=== PATIENT | female | born 1980 | race Caucasian/White ===

== ENCOUNTER → 2016-05-26 | Outpatient (CLI) | payer OTHER ==
[2016-05-26 08:09] LABS: BASO # 0.1 x10^3/uL (0.0-0.2); BASO % 1 % (0-3); EOS % 5 % (0-3); HEMATOCRIT 41.3 % (36.0-47.0); HEMOGLOBIN 13.1 g/dL (12.0-15.5); LYMPH # 2.2 x10^3/uL (1.0-4.8); LYMPH % 30 % (24-48); MEAN CORPUSCULAR HEMOGLOBIN 29 pg (25-35); MEAN CORPUSCULAR HGB CONC 32 g/dL (31-37); MEAN CORPUSCULAR VOLUME 90 fL (79-100); MONO % 9 % (0-9); NEUT % 54 % (31-73); PLATELET COUNT 247 x10^3/uL (140-400); RED BLOOD COUNT 4.57 x10^6/uL (3.50-5.40); RED CELL DISTRIBUTION WIDTH 13.6 % (11.5-14.5); WHITE BLOOD COUNT 7.4 x10^3/uL (4.0-11.0)
[2016-05-26 08:37] LABS: ALBUMIN 3.8 g/dL (3.4-5.0); ALBUMIN/GLOBULIN RATIO 1.1 (1.0-1.7); CALCIUM 9.1 mg/dL (8.5-10.1); CHOLESTEROL/HDL RATIO 1.2; CREATININE 0.7 mg/dL (0.6-1.0); GFR 94.2; POTASSIUM 3.8 mmol/L (3.5-5.1); TOTAL BILIRUBIN 0.4 mg/dL (0.2-1.0); TOTAL PROTEIN 7.4 g/dL (6.4-8.2)
[2016-05-26 10:33] LABS: BILIRUBIN,URINE NEGATIVE (NEG); GLUCOSE,URINE NEGATIVE (NEG); NITRITE,URINE NEGATIVE (NEG); PH,URINE 7.5; PROTEIN,URINE NEGATIVE (NEG-TRACE)
[2016-05-26 10:53] LABS: BACTERIA,URINE MODERATE /HPF (0-FEW); RBC,URINE 0 /HPF (0-2); SQUAMOUS EPITHELIAL CELL,UR MANY /LPF
== END | disposition home or self-care (01) ==
LOC: LAB 07:43
PROVIDERS: ATTEND Family Medicine
DX: Z00.00 Encounter for general adult medical examination without abnormal findings (principal); Z13.220 Encounter for screening for lipoid disorders; Z12.11 Encounter for screening for malignant neoplasm of colon
CPT/HCPCS: 36415; 80053; 80061; 81001; 85027; 87086

== ENCOUNTER → 2017-09-21 | Outpatient (CLI) | payer OTHER | END | disposition home or self-care (01) | LOC: RAD 15:21 | DX: M25.522 Pain in left elbow (principal); Z91.81 History of falling | CPT/HCPCS: 73080 ==

== ENCOUNTER 2017-12-27 14:45 | Emergency (ER) | payer OTHER ==
[~2017-12-27] VITALS: Ht 160 cm; Wt 79.4 kg
[2017-12-27 14:58] VITALS: BP 149/99
[2017-12-27] MEDS ORDERED: NAPROXEN 500 MG TABLET PO STA (15:24)
[2017-12-27] MEDS ORDERED: diazePAM 5 MG TABLET PO ONE (15:30)
[2017-12-27] MEDS ORDERED: HYDROcodone/APAP 5/325MG 1 TAB TABLET PO ONE (15:30)
[2017-12-27 15:51] LABS: BILIRUBIN,URINE NEGATIVE (NEG); CLARITY,URINE CLEAR; COLOR,URINE YELLOW; NITRITE,URINE NEGATIVE (NEG); PH,URINE 8.5; PROTEIN,URINE 100 mg/dL (NEG-TRACE); UROBILINOGEN,URINE 0.2 mg/dL (0.2 mg/dL)
--- NOTE | 2017-12-27 15:58 | PHYS DOC ---
Past Medical History Past Medical History: Anxiety, Asthma Past Surgical History: No Surgical History Alcohol Use: Occasionally Drug Use: None Adult General Chief Complaint Chief Complaint: BACK PAIN - NO INJURY HPI HPI Patient is a 37 year old female with history of asthma, anxiety, who presents today complaining of 5 out of 10 sharp right mid back spasms that began a couple minutes prior to signing in. Patient denies any known injury. Patient denies any pain radiating to the abdomen. Denies any chance she is . Denies any nausea vomiting. Denies any urgency frequency dysuria. Patient denies any pain radiating to bilateral lower extremities, denies any loss of bowel bladder function. 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 Review of Systems Review of Systems Constitutional: Denies fever or chills [] Eyes: Denies change in visual acuity, redness, or eye pain [] HENT: Denies nasal congestion or sore throat [] Respiratory: Denies cough or shortness of breath [] Cardiovascular: No additional information not addressed in HPI [] GI: Denies abdominal pain, nausea, vomiting, bloody stools or diarrhea [] : Denies dysuria or hematuria [] Musculoskeletal: Reports right mid back spasms Integument: Denies rash or skin lesions [] Neurologic: Denies headache, focal weakness or sensory changes [] All other systems were reviewed and found to be within normal limits, except as documented in this note. Current Medications Current Medications Current Medications Medications (Trade) Dose Ordered Sig/Abelardo Start Time Stop Time Status Last Admin Dose Admin Acetaminophen/ Hydrocodone Bitart (Lortab 5/325) 1 tab 1X ONCE 12/27/17 15:30 12/27/17 15:31 DC 12/27/17 15:47 1 TAB Diazepam (Valium) 5 mg 1X ONCE 12/27/17 15:30 12/27/17 15:31 DC 12/27/17 15:47 5 MG Naproxen (Naprosyn) 500 mg 1X STAT 12/27/17 15:24 12/27/17 15:26 DC 12/27/17 15:47 500 MG Allergies Allergies Allergies Coded Allergies Type Severity Reaction Last Updated Verified Penicillins Allergy Intermediate 12/27/17 Yes Physical Exam Physical Exam Constitutional: Well developed, well nourished, no acute distress, non-toxic appearance. [] HENT: Normocephalic, atraumatic, bilateral external ears normal, oropharynx moist, no oral exudates, nose normal. [] Eyes: PERRLA, EOMI, conjunctiva normal, no discharge. [] Neck: Normal range of motion, no tenderness, supple, no stridor. [] Cardiovascular:Heart rate regular rhythm, no murmur [] Lungs & Thorax: Bilateral breath sounds clear to auscultation [] Abdomen: Bowel sounds normal, soft, no tenderness, no masses, no pulsatile masses. [] Skin: Warm, dry, no erythema, no rash. [] Back: No tenderness, no CVA tenderness. [] Extremities: No tenderness, no cyanosis, no clubbing, ROM intact, no edema. [] Neurologic: Alert and oriented X 3, normal motor function, normal sensory function, no focal deficits noted. [] Psychologic: Affect normal, judgement normal, mood normal. [] Current Patient Data Vital Signs Vital Signs Date Time Temp Pulse Resp B/P (MAP) Pulse Ox O2 Delivery O2 Flow Rate FiO2 12/27/17 14:58 97.8 70 20 149/99 (116) 97 Room Air 97.8 Lab Values Laboratory Tests Test 12/27/17 15:45 Urine Collection Type Unknown Urine Color Yellow Urine Clarity Clear Urine pH 8.5 Urine Specific [place] 1.025 Urine Protein 100 mg/dL (NEG-TRACE) Urine Glucose (UA) Negative mg/dL (NEG) Urine Ketones (Stick) Negative mg/dL (NEG) Urine Blood Negative (NEG) Urine Nitrite Negative (NEG) Urine Bilirubin Negative (NEG) Urine Urobilinogen Dipstick 0.2 mg/dL (0.2 mg/dL) Urine Leukocyte Esterase Negative (NEG) Urine RBC 0 /HPF (0-2) Urine WBC Rare /HPF (0-4) Urine Squamous Epithelial Cells Mod /LPF Urine Bacteria Few /HPF (0-FEW) Urine Mucus Marked /LPF EKG EKG [] Radiology/Procedures Radiology/Procedures []PROCEDURE: THORACIC SPINE 3V Examination: 3 views of the thoracic spine HISTORY: History of back spasms COMPARISON: None available FINDINGS: The thoracic vertebral body heights are maintained. Mild intervertebral disc height loss identified throughout the thoracic spine. No evidence of listhesis. IMPRESSION: Mild degenerative changes thoracic spine. Electronically signed by: Xavier Byrd MD (12/27/2017 3:58 PM) [facility] DICTATED and SIGNED BY: XAVIER BYRD MD DATE: 12/27/17 1556 Course & Med Decision Making Course & Med Decision Making Pertinent Labs and Imaging studies reviewed. (See chart for details) This is a 37 female patient presenting to the ED today with right mid back spasms that began a couple minutes prior to signing in to be seen. 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 She denies any known injury. Urine analysis is negative for infection. Thoracic spine x-rays interpreted by radiologist are negative for any acute findings. Patient was discharged with Valium, hydrocodone and diclofenac. Heat recommended to the mid back. Instructed to follow-up with primary care doctor in 1-2 weeks as needed. Dragon Disclaimer Dragon Disclaimer This electronic medical record was generated, in whole or in part, using a voice recognition dictation system. Departure Departure Impression: Primary Impression: Spasm of thoracic back muscle Disposition: HOME, SELF-CARE Condition: STABLE Referrals: BEN GHOSH MD (PCP) follow up in 1-2 weeks Patient Instructions: Back Pain, Adult Additional Instructions: You were evaluated in the emergency room for mid back spasms. We put you on medications, take them as needed. Follow-up with your doctor in 1-2 weeks. Scripts Diclofenac Sodium (DICLOFENAC SODIUM) 50 Mg Tablet. 1 TAB PO BID, #30 TAB 0 Refills Prov: MARGARITA BATRES APRN 12/27/17 Hydrocodone/Apap 5-325 (NORCO 5-325 TABLET) 1 Each Tablet 1 TAB PO Q6HRS PRN for PAIN, #15 TAB Prov: MARGARITA BATRES APRN 12/27/17 Diazepam (VALIUM) 5 Mg Tablet 5 MG PO TID, #20 TAB Prov: MARGARITA BATRES APRN 12/27/17 MARGARITA BATRES APRN Dec 27, 2017 15:58
--- NOTE | 2017-12-27 16:01 | RAD ---
Examination: 3 views of the thoracic spine HISTORY: History of back spasms COMPARISON: None available FINDINGS: The thoracic vertebral body heights are maintained. Mild intervertebral disc height loss identified throughout the thoracic spine. No evidence of listhesis. IMPRESSION: Mild degenerative changes thoracic spine. Electronically signed by: Xavier Byrd MD (12/27/2017 3:58 PM) [place] [id number]
[2017-12-27 16:03] LABS: BACTERIA,URINE FEW /HPF (0-FEW); RBC,URINE 0 /HPF (0-2); SQUAMOUS EPITHELIAL CELL,UR MOD /LPF; WBC,URINE RARE /HPF (0-4)
[2017-12-27] MEDS ORDERED: DIAZ5TAB PO (16:26)
[2017-12-27] MEDS ORDERED: HYDR-971 PO (16:26)
[2017-12-27] MEDS ORDERED: DICL50TA4 PO (16:26)
== END 2017-12-27 16:40 | disposition home or self-care (01) ==
LOC: ER 14:45
DX: M54.6 Pain in thoracic spine (principal); F41.9 Anxiety disorder, unspecified; J45.909 Unspecified asthma, uncomplicated; Z88.0 Allergy status to penicillin
CPT/HCPCS: 72072; 81001; 81025; 99285

== ENCOUNTER 2018-06-14 15:33 | Inpatient (IN) | payer OTHER ==
[~2018-06-14] VITALS: Ht 162.6 cm; Wt 71.3 kg
[~2018-06-14 15:33] MED LIST: DIAZ5TAB PO; DICL50TA4 PO; HYDR-3164 PO
[2018-06-14 16:06] LABS: BILIRUBIN,URINE NEGATIVE (NEG); CLARITY,URINE CLEAR; COLOR,URINE AMBER; NITRITE,URINE NEGATIVE (NEG); PH,URINE 8.5; PROTEIN,URINE 100 mg/dL (NEG-TRACE)
[2018-06-14 16:14] LABS: BACTERIA,URINE MANY /HPF (0-FEW); HYALINE CASTS, URINE MODERATE /HPF; SQUAMOUS EPITHELIAL CELL,UR OCC /LPF
[2018-06-14 16:15] LABS: RBC,URINE 0 /HPF (0-2)
--- NOTE | 2018-06-14 16:15 | PHYS DOC ---
Past Medical History Past Medical History: Asthma, Migraines Past Surgical History: No Surgical History Alcohol Use: Heavy Additional Information: every night Drug Use: None Adult General Chief Complaint Chief Complaint: DIZZY/LIGHT HEADED HPI HPI Patient is a 37 year old female who presents with the last week she has had lightheadedness, dizziness, diaphoresis, nausea when she goes to stand up and then when she lays down she states she feels better. Patient states also when the symptoms occur she has a headache in the front and the back low. Patient denies chest pain, shortness of air, diarrhea, fever, visual changes, palpitations, vomiting, cough, syncope. Review of Systems Review of Systems Constitutional: Denies fever or chills [] Eyes: Denies change in visual acuity, redness, or eye pain [] HENT: Denies nasal congestion or sore throat [] Respiratory: Denies cough or shortness of breath [] Cardiovascular: denies chest pain or soa GI: Denies abdominal pain, nausea, vomiting, bloody stools or diarrhea [] : Denies dysuria or hematuria [] Musculoskeletal: Denies back pain or joint pain [] Integument: Denies rash or skin lesions [] Neurologic: Frontal and posterior headache, dizziness, denies focal weakness or sensory changes [] All other systems were reviewed and found to be within normal limits, except as documented in this note. Current Medications Current Medications Current Medications Medications (Trade) Dose Ordered Sig/Abelardo Start Time Stop Time Status Last Admin Dose Admin Acetaminophen (Tylenol) 650 mg PRN Q4HRS PRN 06/14/18 17:30 06/15/18 17:29 Fentanyl Citrate (Fentanyl 2ml Vial) 50 mcg PRN Q1HR PRN 06/14/18 17:30 06/15/18 17:29 Ondansetron HCl (Zofran Odt) 4 mg 1X ONCE 06/14/18 17:15 06/14/18 17:17 DC Ondansetron HCl (Zofran) 4 mg PRN Q8HRS PRN 06/14/18 17:30 06/15/18 17:29 Potassium Chloride (KCl Oral Soln) 40 meq 1X ONCE 06/14/18 17:15 06/14/18 17:16 DC 06/14/18 17:16 40 MEQ Sodium Chloride 1,000 ml @ 1,000 mls/hr 1X ONCE 06/14/18 16:45 06/14/18 17:44 06/14/18 16:51 1,000 MLS/HR Allergies Allergies Allergies Coded Allergies Type Severity Reaction Last Updated Verified Penicillins Allergy Intermediate 12/27/17 Yes Physical Exam Physical Exam Constitutional: Well developed, well nourished, no acute distress, non-toxic appearance. [] HENT: Normocephalic, atraumatic, bilateral external ears normal, oropharynx moist, no oral exudates, nose normal. [] Eyes: PERRLA, EOMI, conjunctiva normal, no discharge. [] Neck: Normal range of motion, no tenderness, supple, no stridor. [] Cardiovascular:Heart rate tachy rhythm, no murmur [] Lungs & Thorax: Bilateral breath sounds clear to auscultation [] Abdomen: Bowel sounds normal, soft, no tenderness, no masses, no pulsatile masses. [] Skin: Warm, dry, no erythema, no rash. [] Back: No tenderness, no CVA tenderness. [] Extremities: No tenderness, no cyanosis, no clubbing, ROM intact, no edema. [] Neurologic: Alert and oriented X 3, normal motor function, normal sensory function, no focal deficits noted. [] Psychologic: Affect normal, judgement normal, mood normal. [] Current Patient Data Vital Signs Vital Signs Date Time Temp Pulse Resp B/P (MAP) Pulse Ox O2 Delivery O2 Flow Rate FiO2 06/14/18 15:44 98.1 59 14 125/75 (92) 97 Room Air 98.1 Lab Values Laboratory Tests Test 06/14/18 15:40 06/14/18 16:30 Urine Color [place] Urine Clarity Clear Urine pH 8.5 Urine Specific [place] >=1.030 Urine Protein 100 mg/dL (NEG-TRACE) Urine Glucose (UA) Negative mg/dL (NEG) Urine Ketones (Stick) Trace mg/dL (NEG) Urine Blood Negative (NEG) Urine Nitrite Negative (NEG) Urine Bilirubin Negative (NEG) Urine Urobilinogen Dipstick 1.0 mg/dL (0.2 mg/dL) Urine Leukocyte Esterase Small (NEG) Urine RBC 0 /HPF (0-2) Urine WBC 5-10 /HPF (0-4) Urine Squamous Epithelial Cells Occ /LPF Urine Bacteria Many /HPF (0-FEW) Urine Hyaline Casts Moderate /HPF Urine Mucus Mod /LPF Urine Test Negative (NEG) White Blood Count 6.8 x10^3/uL (4.0-11.0) Red Blood Count 4.35 x10^6/uL (3.50-5.40) Hemoglobin 13.3 g/dL (12.0-15.5) Hematocrit 38.9 % (36.0-47.0) Mean Corpuscular Volume 89 fL (79-100) Mean Corpuscular Hemoglobin 31 pg (25-35) Mean Corpuscular Hemoglobin Concent 34 g/dL (31-37) Red Cell Distribution Width 12.6 % (11.5-14.5) Platelet Count 198 x10^3/uL (140-400) Neutrophils (%) (Auto) 51 % (31-73) Lymphocytes (%) (Auto) 32 % (24-48) Monocytes (%) (Auto) 15 % (0-9) H Eosinophils (%) (Auto) 1 % (0-3) Basophils (%) (Auto) 1 % (0-3) Neutrophils # (Auto) 3.5 x10^3uL (1.8-7.7) Lymphocytes # (Auto) 2.2 x10^3/uL (1.0-4.8) Monocytes # (Auto) 1.0 x10^3/uL (0.0-1.1) Eosinophils # (Auto) 0.0 x10^3/uL (0.0-0.7) Basophils # (Auto) 0.1 x10^3/uL (0.0-0.2) Sodium Level 130 mmol/L (136-145) L Potassium Level 2.2 mmol/L (3.5-5.1) *L Chloride Level 80 mmol/L (98-107) L Carbon Dioxide Level mmol/L (21-32) Anion Gap (6-14) Blood Urea Nitrogen 17 mg/dL (7-20) Creatinine 1.2 mg/dL (0.6-1.0) H Estimated GFR (Cockcroft-Gault) 50.0 BUN/Creatinine Ratio 14 (6-20) Glucose Level 118 mg/dL (70-99) H Calcium Level 9.6 mg/dL (8.5-10.1) Magnesium Level 2.3 mg/dL (1.8-2.4) Total Bilirubin 1.2 mg/dL (0.2-1.0) H Aspartate Amino Transferase (AST) 97 U/L (15-37) H Alanine Aminotransferase (ALT) 66 U/L (14-59) H Alkaline Phosphatase 79 U/L (46-116) Troponin I Quantitative < 0.017 ng/mL (0.000-0.055) Total Protein 7.6 g/dL (6.4-8.2) Albumin 3.7 g/dL (3.4-5.0) Albumin/Globulin Ratio 0.9 (1.0-1.7) L Laboratory Tests 06/14/18 16:30 Laboratory Tests 06/14/18 16:30 EKG EKG Sinus Tachy and no STEMI Interpretation Time: [address] Brantley Radiology/Procedures Radiology/Procedures [] Impressions: [facility] [address] [place] [address] IMAGING REPORT Signed PATIENT: JULIO AYALA ACCOUNT: [id number] : 1980 LOCATION: ER AGE: 37 SEX: F EXAM STATUS: REG ER ORD. PHYSICIAN: ALEC REDDY APRN REASON: dizziness PROCEDURE: CHEST PA & LATERAL EXAM: Chest, 2 views. HISTORY: Dizziness. Congestion. COMPARISON: None. FINDINGS: 2 views the chest are obtained. There is no infiltrate, pleural effusion or pneumothorax. The heart is normal in size. IMPRESSION: No acute pulmonary finding. Electronically signed by: Anabelle Zamorano MD (06/14/2018 4:44 PM) [facility] DICTATED and SIGNED BY: ANABELLE ZAMORANO MD DATE: 06/14/18 1644 Course & Med Decision Making Course & Med Decision Making Patient is a 37 year old female who presents with the last week she has had lightheadedness, dizziness, diaphoresis, nausea when she goes to stand up and then when she lays down she states she feels better. Patient states also when the symptoms occur she has a headache in the front and the back low. Patient denies chest pain, shortness of air, diarrhea, fever, visual changes, palpitations, vomiting, cough, syncope. Alert and oriented. Speaks in full clear sentences. Skin pink warm and dry. No extremity edema. His membranes are moist. Vital signs are 125/75, 96% on room air, 102 heart rate, afebrile. Patient's EKG shows sinus tach and no STEMI. When in the room examining the patient her heart rate dropped from 102 in to the 40s and then came back up into the low 100s. Patient stated she didn't feel any dizziness or any difference when this was happening. She has had no symptoms. PERRLA. Neurologically intact. Denies any numbness or tingling or weaknesses. Ambulatory with a steady gait. Lungs are clear to auscultation all lobes. Patient states she is eating and drinking appropriately. Chest xray shows no acute findings. Potassium is 2.2. Heart rate dropped again at 1618 briefly but could no be caught on the EKG machine. With orthostatics patient stood up and began having Left leg spasm and or cramps. I have ordered potassium 40 meq. Orthostatics : Laying 88 heart rate, 125/70 Sitting 110 heart rate 95/69 Standing 130 heart rate 78/[address] I have spoken [address] Maria C Hines for admission. Dragon Disclaimer Dragon Disclaimer This electronic medical record was generated, in whole or in part, using a voice recognition dictation system. Departure Departure Impression: Primary Impression: Hypokalemia Additional Impression: Orthostatic hypotension Disposition: ADMITTED INPATIENT Admitting Physician: Aureliano Wilson Condition: STABLE Referrals: AURELIANO WILSON MD (PCP) Problem Qualifiers ALEC REDDY APRN Jun 14, 2018 16:15
[2018-06-14 16:25] LABS: U PREG PATIENT NEGATIVE (NEG)
[2018-06-14 16:35] LABS: BASO # 0.1 x10^3/uL (0.0-0.2); BASO % 1 % (0-3); EOS % 1 % (0-3); HEMATOCRIT 38.9 % (36.0-47.0); HEMOGLOBIN 13.3 g/dL (12.0-15.5); LYMPH # 2.2 x10^3/uL (1.0-4.8); LYMPH % 32 % (24-48); MEAN CORPUSCULAR HEMOGLOBIN 31 pg (25-35); MEAN CORPUSCULAR HGB CONC 34 g/dL (31-37); MEAN CORPUSCULAR VOLUME 89 fL (79-100); MONO % 15 % (0-9); NEUT # 3.5 x10^3uL (1.8-7.7); NEUT % 51 % (31-73); PLATELET COUNT 198 x10^3/uL (140-400); RED BLOOD COUNT 4.35 x10^6/uL (3.50-5.40); RED CELL DISTRIBUTION WIDTH 12.6 % (11.5-14.5); WHITE BLOOD COUNT 6.8 x10^3/uL (4.0-11.0)
[2018-06-14] MEDS ORDERED: IV NORMAL SALINE 1000ML BAG 1,000 ML IV ONE (16:45)
--- NOTE | 2018-06-14 16:46 | RAD ---
EXAM: Chest, 2 views. HISTORY: Dizziness. Congestion. COMPARISON: None. FINDINGS: 2 views the chest are obtained. There is no infiltrate, pleural effusion or pneumothorax. The heart is normal in size. IMPRESSION: No acute pulmonary finding. Electronically signed by: Anabelle Perez MD (06/14/2018 4:44 PM) [place] [id number]
[2018-06-14 16:49] LABS: ALBUMIN 3.7 g/dL (3.4-5.0); ALBUMIN/GLOBULIN RATIO 0.9 (1.0-1.7); ALK PHOS 79 U/L (46-116); ALT (SGPT) 66 U/L (14-59); AST (SGOT) 97 U/L (15-37); BLOOD UREA NITROGEN 17 mg/dL (7-20); BUN/CREATININE RATIO 14 (6-20); CALCIUM 9.6 mg/dL (8.5-10.1); CHLORIDE 80 mmol/L (98-107); CREATININE 1.2 mg/dL (0.6-1.0); GLUCOSE 118 mg/dL (70-99); SODIUM 130 mmol/L (136-145); TOTAL BILIRUBIN 1.2 mg/dL (0.2-1.0); TOTAL PROTEIN 7.6 g/dL (6.4-8.2)
[2018-06-14 16:53] LABS: POTASSIUM 2.2 mmol/L (3.5-5.1)
[2018-06-14] MEDS ORDERED: POTASSIUM CHLORIDE 20 MEQ/15 ML ORAL LIQUID. PO ONE (17:15)
[2018-06-14] MEDS ORDERED: ONDANSETRON ODT 4 MG TAB.RAPDIS. PO ONE (17:15)
[2018-06-14] MEDS ORDERED: fentaNYL PF VIAL 100 MCG/2 ML VIAL IV PRN (17:30)
[2018-06-14] MEDS ORDERED: ONDANSETRON PF 4 MG/2 ML VIAL. IV PRN (17:30)
[2018-06-14] MEDS ORDERED: ACETAMINOPHEN 325 MG TABLET. PO PRN (17:30)
[2018-06-14 20:05] VITALS: BP 112/72
[2018-06-14] MEDS ORDERED: NORE-41 PO (20:24)
[2018-06-14] MEDS ORDERED: FLUT9.9S NS (20:24)
[2018-06-14] MEDS ORDERED: ALBU2.5V8 INH (20:24)
[2018-06-14] MEDS ORDERED: mirena (20:24)
[2018-06-14] MEDS ORDERED: ZOLPIDEM 5 MG TABLET. PO ONE (21:00)
[2018-06-14 22:58] VITALS: BP 113/71
[2018-06-15] MEDS ORDERED: ZOLPIDEM 5 MG TABLET. PO ONE (01:00)
[2018-06-15 03:16] VITALS: BP 109/66
[2018-06-15 05:09] LABS: ALBUMIN 3.1 g/dL (3.4-5.0); ALBUMIN/GLOBULIN RATIO 0.9 (1.0-1.7); CALCIUM 8.5 mg/dL (8.5-10.1); CREATININE 0.8 mg/dL (0.6-1.0); GFR 79.9; TOTAL PROTEIN 6.4 g/dL (6.4-8.2)
[2018-06-15 05:22] LABS: POTASSIUM 1.9 mmol/L (3.5-5.1)
[2018-06-15] MEDS: POTASSIUM CHLORIDE 10MEQ 100 ML IV SCH ×4 (06:05→09:00)
[2018-06-15 07:00] VITALS: BP 136/89
--- NOTE | 2018-06-15 07:53 | PDOC1 ---
History and Physical Date of Admission Date of Admission 06/14/18 Identification/Chief Complaint Chief Complaint Dizzyness Source Source: Patient History of Present Illness History of Present Illness Pt states that the 3 days prior to admission she was feeling very dizzy, lightheaded with headache. Pt also felt like she couldn't catch her breath when she would stand up, which was different than her normal asthma symptoms. Pt says that she hadn't really noticed anything else being different over the past couple of week. Pt did get let go from her job about a week and a half ago ; admits that she may have increased her alcohol drinking unintentionally. Pt does normally have a couple of glasses of wine a night; says that it is not uncommon for her "stomach to get too full" and then she will throw up. This last occurred 2 days ago. Denies diarrhea but did have looser stools yesterday. She has lost 40 pounds intentionally over the past couple of months. Past Medical History Cardiovascular: No pertinent hx Pulmonary: Asthma GI: No pertinent hx Heme/Onc: No pertinent hx Hepatobiliary: No pertinent hx Psych: Anxiety Rheumatologic: No pertinent hx Infectious disease: No pertinent hx ENT: No pertinent hx Renal/: No pertinent hx Endocrine: No pertinent hx Dermatology: No pertinent hx Past Surgical History Past Surgical History: No pertinent history Family History Family History: Alcohol Abuse, Chronic Bronchitis, Diabetes, Hypertension, Stroke Social History Smoke: Quit ALCOHOL: heavy Drugs: None Current Problem List Problem List Problems Medical Problems: (1) Hypokalemia Status: Acute (2) Orthostatic hypotension Status: Acute Current Medications Current Medications Current Medications Medications (Trade) Dose Ordered Sig/Abelardo Start Time Stop Time Status Last Admin Dose Admin Acetaminophen (Tylenol) 650 mg PRN Q4HRS PRN 06/14/18 17:30 06/15/18 17:29 Fentanyl Citrate (Fentanyl 2ml Vial) 50 mcg PRN Q1HR PRN 06/14/18 17:30 06/15/18 17:29 Ondansetron HCl (Zofran Odt) 4 mg 1X ONCE 06/14/18 17:15 06/14/18 17:17 DC Ondansetron HCl (Zofran) 4 mg PRN Q8HRS PRN 06/14/18 17:30 06/15/18 17:29 Potassium Chloride/Water 100 ml @ 100 mls/hr Q1H 06/15/18 06:00 06/15/18 09:59 06/15/18 06:05 100 MLS/HR Potassium Chloride (KCl Oral Soln) 40 meq 1X ONCE 06/14/18 17:15 06/14/18 17:16 DC 06/14/18 17:16 40 MEQ Sodium Chloride 1,000 ml @ 1,000 mls/hr 1X ONCE 06/14/18 16:45 06/14/18 17:44 DC 06/14/18 16:51 1,000 MLS/HR Zolpidem Tartrate (Ambien) 5 mg 1X ONCE 06/15/18 01:00 06/15/18 01:01 DC 06/15/18 00:36 5 MG Allergies Allergies Allergies Coded Allergies Type Severity Reaction Last Updated Verified Penicillins Allergy Intermediate 12/27/17 Yes ROS Review of System CONSTITUTIONAL: No fever +chills yesterday EYES: No recent changes SKIN: Rash on chest that has been present for awhile CARDIOVASCULAR: No chest pain, syncope, palpitations, or edema RESPIRATORY: Mild non productive cough, short of breath at times GASTROINTESTINAL: No nausea, vomiting or abdominal pain NEUROLOGICAL: No headaches or weakness ENDOCRINE: No cold or heat intolerance GENITOURINARY: No urgency or frequency of urination MUSCULOSKELETAL: No back pain or joint pain LYMPHATICS: No enlarged lymph nodes PSYCHIATRIC: No anxiety or depression Physical Exam Physical Exam GEN.: No apparent distress. Alert and oriented. Slight tremor HEENT: Head is normocephalic, atraumatic NECK: Supple. LUNGS: Clear to auscultation. HEART: RRR, S1, S2 present. Peripheral pulses intact ABDOMEN: Soft, nontender. Positive bowel sounds. EXTREMITIES: Without any cyanosis. NEUROLOGIC: Normal speech, normal tone PSYCHIATRIC: Normal affect, normal mood. SKIN: No ulcerations Vitals Vitals Vital Signs Date Time Temp Pulse Resp B/P (MAP) Pulse Ox O2 Delivery O2 Flow Rate FiO2 06/15/18 03:16 98.4 91 16 109/66 (80) 96 Room Air 98.4 Labs Labs Laboratory Tests Test 06/14/18 15:40 06/14/18 16:30 06/15/18 03:50 Urine Color [place] Urine Clarity Clear Urine pH 8.5 Urine Specific [place] >=1.030 Urine Protein 100 mg/dL (NEG-TRACE) Urine Glucose (UA) Negative mg/dL (NEG) Urine Ketones (Stick) Trace mg/dL (NEG) Urine Blood Negative (NEG) Urine Nitrite Negative (NEG) Urine Bilirubin Negative (NEG) Urine Urobilinogen Dipstick 1.0 mg/dL (0.2 mg/dL) Urine Leukocyte Esterase Small (NEG) Urine RBC 0 /HPF (0-2) Urine WBC 5-10 /HPF (0-4) Urine Squamous Epithelial Cells Occ /LPF Urine Bacteria Many /HPF (0-FEW) Urine Hyaline Casts Moderate /HPF Urine Mucus Mod /LPF Urine Test Negative (NEG) White Blood Count 6.8 x10^3/uL (4.0-11.0) Red Blood Count 4.35 x10^6/uL (3.50-5.40) Hemoglobin 13.3 g/dL (12.0-15.5) Hematocrit 38.9 % (36.0-47.0) Mean Corpuscular Volume 89 fL (79-100) Mean Corpuscular Hemoglobin 31 pg (25-35) Mean Corpuscular Hemoglobin Concent 34 g/dL (31-37) Red Cell Distribution Width 12.6 % (11.5-14.5) Platelet Count 198 x10^3/uL (140-400) Neutrophils (%) (Auto) 51 % (31-73) Lymphocytes (%) (Auto) 32 % (24-48) Monocytes (%) (Auto) 15 % (0-9) Eosinophils (%) (Auto) 1 % (0-3) Basophils (%) (Auto) 1 % (0-3) Neutrophils # (Auto) 3.5 x10^3uL (1.8-7.7) Lymphocytes # (Auto) 2.2 x10^3/uL (1.0-4.8) Monocytes # (Auto) 1.0 x10^3/uL (0.0-1.1) Eosinophils # (Auto) 0.0 x10^3/uL (0.0-0.7) Basophils # (Auto) 0.1 x10^3/uL (0.0-0.2) Sodium Level 130 mmol/L (136-145) 133 mmol/L (136-145) Potassium Level 2.2 mmol/L (3.5-5.1) 1.9 mmol/L (3.5-5.1) Chloride Level 80 mmol/L (98-107) 87 mmol/L (98-107) Carbon Dioxide Level mmol/L (21-32) 41 mmol/L (21-32) Anion Gap (6-14) 5 (6-14) Blood Urea Nitrogen 17 mg/dL (7-20) 17 mg/dL (7-20) Creatinine 1.2 mg/dL (0.6-1.0) 0.8 mg/dL (0.6-1.0) Estimated GFR (Cockcroft-Gault) 50.0 79.9 BUN/Creatinine Ratio 14 (6-20) 21 (6-20) Glucose Level 118 mg/dL (70-99) 86 mg/dL (70-99) Calcium Level 9.6 mg/dL (8.5-10.1) 8.5 mg/dL (8.5-10.1) Magnesium Level 2.3 mg/dL (1.8-2.4) Total Bilirubin 1.2 mg/dL (0.2-1.0) 1.0 mg/dL (0.2-1.0) Aspartate Amino Transf (AST/SGOT) 97 U/L (15-37) 56 U/L (15-37) Alanine Aminotransferase (ALT/SGPT) 66 U/L (14-59) 45 U/L (14-59) Alkaline Phosphatase 79 U/L (46-116) 62 U/L (46-116) Troponin I Quantitative < 0.017 ng/mL (0.000-0.055) Total Protein 7.6 g/dL (6.4-8.2) 6.4 g/dL (6.4-8.2) Albumin 3.7 g/dL (3.4-5.0) 3.1 g/dL (3.4-5.0) Albumin/Globulin Ratio 0.9 (1.0-1.7) 0.9 (1.0-1.7) Laboratory Tests Test 06/14/18 15:40 06/14/18 16:30 06/15/18 03:50 Urine Color [place] Urine Clarity Clear Urine pH 8.5 Urine Specific [place] >=1.030 Urine Protein 100 mg/dL (NEG-TRACE) Urine Glucose (UA) Negative mg/dL (NEG) Urine Ketones (Stick) Trace mg/dL (NEG) Urine Blood Negative (NEG) Urine Nitrite Negative (NEG) Urine Bilirubin Negative (NEG) Urine Urobilinogen Dipstick 1.0 mg/dL (0.2 mg/dL) Urine Leukocyte Esterase Small (NEG) Urine RBC 0 /HPF (0-2) Urine WBC 5-10 /HPF (0-4) Urine Squamous Epithelial Cells Occ /LPF Urine Bacteria Many /HPF (0-FEW) Urine Hyaline Casts Moderate /HPF Urine Mucus Mod /LPF Urine Test Negative (NEG) White Blood Count 6.8 x10^3/uL (4.0-11.0) Red Blood Count 4.35 x10^6/uL (3.50-5.40) Hemoglobin 13.3 g/dL (12.0-15.5) Hematocrit 38.9 % (36.0-47.0) Mean Corpuscular Volume 89 fL (79-100) Mean Corpuscular Hemoglobin 31 pg (25-35) Mean Corpuscular Hemoglobin Concent 34 g/dL (31-37) Red Cell Distribution Width 12.6 % (11.5-14.5) Platelet Count 198 x10^3/uL (140-400) Neutrophils (%) (Auto) 51 % (31-73) Lymphocytes (%) (Auto) 32 % (24-48) Monocytes (%) (Auto) 15 % (0-9) Eosinophils (%) (Auto) 1 % (0-3) Basophils (%) (Auto) 1 % (0-3) Neutrophils # (Auto) 3.5 x10^3uL (1.8-7.7) Lymphocytes # (Auto) 2.2 x10^3/uL (1.0-4.8) Monocytes # (Auto) 1.0 x10^3/uL (0.0-1.1) Eosinophils # (Auto) 0.0 x10^3/uL (0.0-0.7) Basophils # (Auto) 0.1 x10^3/uL (0.0-0.2) Sodium Level 130 mmol/L (136-145) 133 mmol/L (136-145) Potassium Level 2.2 mmol/L (3.5-5.1) 1.9 mmol/L (3.5-5.1) Chloride Level 80 mmol/L (98-107) 87 mmol/L (98-107) Carbon Dioxide Level mmol/L (21-32) 41 mmol/L (21-32) Anion Gap (6-14) 5 (6-14) Blood Urea Nitrogen 17 mg/dL (7-20) 17 mg/dL (7-20) Creatinine 1.2 mg/dL (0.6-1.0) 0.8 mg/dL (0.6-1.0) Estimated GFR (Cockcroft-Gault) 50.0 79.9 BUN/Creatinine Ratio 14 (6-20) 21 (6-20) Glucose Level 118 mg/dL (70-99) 86 mg/dL (70-99) Calcium Level 9.6 mg/dL (8.5-10.1) 8.5 mg/dL (8.5-10.1) Magnesium Level 2.3 mg/dL (1.8-2.4) Total Bilirubin 1.2 mg/dL (0.2-1.0) 1.0 mg/dL (0.2-1.0) Aspartate Amino Transf (AST/SGOT) 97 U/L (15-37) 56 U/L (15-37) Alanine Aminotransferase (ALT/SGPT) 66 U/L (14-59) 45 U/L (14-59) Alkaline Phosphatase 79 U/L (46-116) 62 U/L (46-116) Troponin I Quantitative < 0.017 ng/mL (0.000-0.055) Total Protein 7.6 g/dL (6.4-8.2) 6.4 g/dL (6.4-8.2) Albumin 3.7 g/dL (3.4-5.0) 3.1 g/dL (3.4-5.0) Albumin/Globulin Ratio 0.9 (1.0-1.7) 0.9 (1.0-1.7) VTE Prophylaxis Ordered VTE Prophylaxis Devices: No VTE Pharmacological Prophylaxi: No Assessment/Plan Assessment/Plan Pt is a 37yo CF admitted for symptomatic hypokalemia 1)Symptomatic hypokalemia- will continue replacing. Mg yesterday was normal, will repeat. Think likely due to heavier alcohol use since losing job. CTM 2)Transaminitis- likely 2/2 alcohol use, improving. 3)PEM-mild 4)Asthma- well controlled, will have albuterol available as needed 5)Hyponatremia- will continue IVF hydration RASHAUN STARK MD Jun 15, 2018 07:53
[2018-06-15] MEDS ORDERED: MULTIVIT INFUSN,ADULT 4,VIT K 10 ML, THIAMINE INJ 100 MG, FOLIC ACID INJ 1 MG in IV NOR... IV ONE (08:00)
[2018-06-15] MEDS ORDERED: ALBUTEROL SULFATE 2.5 MG/3 ML NEBU. NEB PRN (08:15)
--- NOTE | 2018-06-15 09:20 | EKG ---
[facility] [address] [place] [address] Test Date: 2018-06-14 Test Time: 15:55:43 Pat Name: JULIO AYALA Department: Room: [facility] Gender: F Radiocommunications Technician: : 1980 Requested By: ALEC REDDY Order Number: [id number] Reading MD: Osman Rodrigues MD Measurements Intervals [place] Rate: 103 P: 16 LA: 146 QRS: 19 QRSD: 70 T: 26 QT: 374 QTc: 498 Interpretive Statements SINUS TACHYCARDIA NON-SPECIFIC ST/T CHANGES Electronically Signed On 06-17-2018 14:18:51 CDT by Osman Rodrigues MD
[2018-06-15 09:33] LABS: BARBITURATES NEG (NEG); BENZODIAZEPINES NEG (NEG); CANNABINOIDS NEG (NEG); COCAINE NEG (NEG); METHADONE NEG (NEG); OPIATES NEG (NEG); PHENCYCLIDINE NEG (NEG)
[2018-06-15 09:50] LABS: AMPHETAMINE/METHAMPHETAMINE NEG (NEG)
--- NOTE | 2018-06-15 10:04 | EKG ---
[facility] [address] [place] [address] Test Date: 2018-06-14 Test Time: 16:18:23 Pat Name: JULIO AYALA Department: Room: [facility] Gender: F Technical Administrator: : 1980 Requested By: RASHAUN STARK Order Number: [id number] Reading MD: Osman Rodrigues MD Measurements Intervals [place] Rate: 112 P: 0 [place]: 120 QRS: 12 QRSD: 70 T: 16 QT: 364 QTc: 505 Interpretive Statements SINUS TACHYCARDIA NON-SPECIFIC ST/T CHANGES Electronically Signed On 06-17-2018 14:22:15 CDT by Osman Rodrigues MD
[2018-06-15 11:00] VITALS: BP 104/57
[2018-06-15 14:52] LABS: ALBUMIN 3.5 g/dL (3.4-5.0); CALCIUM 8.8 mg/dL (8.5-10.1); CREATININE 0.9 mg/dL (0.6-1.0); GFR 69.7; TOTAL BILIRUBIN 0.9 mg/dL (0.2-1.0); TOTAL PROTEIN 7.1 g/dL (6.4-8.2)
[2018-06-15 14:59] LABS: POTASSIUM 2.7 mmol/L (3.5-5.1)
[2018-06-15 15:00] VITALS: BP 105/63
[2018-06-15] MEDS ORDERED: POTASSIUM CHLORIDE 20 MEQ TABLET.ER. PO ONE (15:15)
[2018-06-15 19:45] VITALS: BP 121/85
[2018-06-15] MEDS ORDERED: ZOLPIDEM 5 MG TABLET. PO PRN (21:00)
[2018-06-15 23:19] VITALS: BP 104/59
--- NOTE | 2018-06-16 03:12 | NUR ---
Pt very emotional and crying at shift change. Pt stating her insurance last day is on 06/16 and she started crying. Attempted to reassure pt about getting better and increasing her potassium level and informing of current status and plan of care. Pt continued to cry over the phone to someone she was speaking to. Pt at the time wanting something for sleep. Received ok orders for ambien. Pt given medication and no further complaints. Pt wanting to stay sleep at 0300 and did not want vitals at that time. No complications at this time. Pt remains on telemonitor at this time.
[2018-06-16 04:32] LABS: ALBUMIN 2.7 g/dL (3.4-5.0); ALBUMIN/GLOBULIN RATIO 0.8 (1.0-1.7); CALCIUM 8.5 mg/dL (8.5-10.1); CREATININE 0.7 mg/dL (0.6-1.0); GFR 93.2; POTASSIUM 3.2 mmol/L (3.5-5.1); TOTAL BILIRUBIN 0.4 mg/dL (0.2-1.0); TOTAL PROTEIN 6.1 g/dL (6.4-8.2)
[2018-06-16 07:00] VITALS: BP 124/68
[2018-06-16] MEDS ORDERED: POTASSIUM CHLORIDE 20 MEQ TABLET.ER. PO ONE ×2 (09:30→12:00)
--- NOTE | 2018-06-16 09:32 | PDOC3 ---
Discharge Summary Date of Admission: Jun 15, 2018 Date of Discharge: Jun 16, 2018 Follow-Up: Other ([address] Wilson) Admitting Diagnosis comment: Hypotension, Hypokalemia FINAL DIAGNOSIS Symptomatic hypokalemia 2/2 alcohol use, transaminitis, PEM-mild, Asthma, Hyponatremia- resolved Brief Hospital Course DISCHARGE PHYSICAL EXAM GEN.: No apparent distress. Alert and oriented. Slight tremor HEENT: Head is normocephalic, atraumatic NECK: Supple. LUNGS: Clear to auscultation. HEART: RRR, S1, S2 present. Peripheral pulses intact ABDOMEN: Soft, nontender. Positive bowel sounds. EXTREMITIES: Without any cyanosis. NEUROLOGIC: Normal speech, normal tone PSYCHIATRIC: Normal affect, normal mood. SKIN: No ulcerations Pt is a 37yo CF admitted for symptomatic hypokalemia 1)Symptomatic hypokalemia- improving. Will give another dose of KCl this morning and at noon. Repeat at 3pm, if normal can be discharged. Mg levels have been normal. Discussed with pt that I think a lot of her symptoms were due to recent heavy alcohol use, likely related to pt losing her job. 2)Transaminitis- likely 2/2 alcohol use, improving. 3)PEM-mild 4)Asthma- well controlled, will have albuterol available as needed 5)Hyponatremia- resolved with IVF hydration CONDITION AT DISCHARGE: Improved Discharge Medications Current Medications Sodium Chloride 1,000 ml @ 1,000 mls/hr 1X ONCE IV Last administered on at 16:51; Start 06/14/18 at 16:45; Stop 06/14/18 at 17:44; Status DC Potassium Chloride (KCl Oral Soln) 40 meq 1X ONCE PO Last administered on 06/14at 17:16; Start 06/14/18 at 17:15; Stop 06/14/18 at 17:16; Status DC Ondansetron HCl (Zofran Odt) 4 mg 1X ONCE PO ; Start 06/14/18 at 17:15; Stop at 17:17; Status DC Ondansetron HCl (Zofran) 4 mg PRN Q8HRS PRN IV NAUSEA/VOMITING; Start 06/14/18 at 17:30; Stop 06/15/18 at 17:29; Status DC Fentanyl Citrate (Fentanyl 2ml Vial) 50 mcg PRN Q1HR PRN IV PAIN; Start at 17:30; Stop 06/15/18 at 17:29; Status DC Acetaminophen (Tylenol) 650 mg PRN Q4HRS PRN PO FEVER Last administered on 06/15at 08:09; Start 06/14/18 at 17:30; Stop 06/15/18 at 17:29; Status DC Zolpidem Tartrate (Ambien) 5 mg 1X ONCE PO Last administered on 06/14/18at 22: 07; Start 06/14/18 at 21:00; Stop 06/14/18 at 21:01; Status DC Zolpidem Tartrate (Ambien) 5 mg 1X ONCE PO Last administered on 06/15/18at 00: 36; Start 06/15/18 at 01:00; Stop 06/15/18 at 01:01; Status DC Potassium Chloride/Water 100 ml @ 100 mls/hr Q1H IV Last administered on at 09:00; Start 06/15/18 at 06:00; Stop 06/15/18 at 09:59; Status DC Multivitamins 10 ml/Thiamine HCl 100 mg/Folic Acid 1 mg/Sodium Chloride 1,011.2 ml @ 1,000.088 mls/hr 1X ONCE IV Last administered on 06/15/18at 09:05; Start 06/15/18 at 08:00; Stop 06/15/18 at 09:00; Status DC Albuterol Sulfate (Ventolin Neb Soln) 2.5 mg PRN Q4HRS PRN NEB SHORTNESS OF BREATH; Start 06/15/18 at 08:15 Potassium Chloride (Klor-Con) 40 meq 1X ONCE PO Last administered on at 15:16; Start 06/15/18 at 15:15; Stop 06/15/18 at 15:16; Status DC Zolpidem Tartrate (Ambien) 5 mg PRN QHS PRN PO INSOMNIA, MAY REPEAT X1 Last administered on 06/15/18at 21:42; Start 06/15/18 at 21:00 Active Scripts Active Diclofenac Sodium 50 Mg Tablet.dr 1 Tab PO BID [place] 5-325 Tablet (Acetaminophen/Hydrocodone Bitart) 1 Each Tablet 1 Tab PO Q6HRS PRN Valium (Diazepam) 5 Mg Tablet 5 Mg PO TID Reported [mirena] Alyacen (Norethindrone-Ethinyl Estrad) 1 Each Tablet 1 Each PO DAILY Proair Hfa (Albuterol Sulfate) 8.5 Gm Hfa.aer.ad 1 Puff INH PRN Q6HRS PRN Flonase Allergy Relief (Fluticasone Propionate) 9.9 Ml [place].susp 2 Sprays NS DAILY Vital Signs Vital Signs Date Time Temp Pulse Resp B/P (MAP) Pulse Ox O2 Delivery O2 Flow Rate FiO2 06/16/18 07:00 97.6 84 17 124/68 (86) 98 Room Air 97.6 Labs Laboratory Tests Test 06/14/18 15:40 06/14/18 16:30 06/15/18 03:50 06/15/18 08:20 Urine Color [place] Urine Clarity Clear Urine pH 8.5 Urine Specific [place] >=1.030 Urine Protein 100 mg/dL (NEG-TRACE) Urine Glucose (UA) Negative mg/dL (NEG) Urine Ketones (Stick) Trace mg/dL (NEG) Urine Blood Negative (NEG) Urine Nitrite Negative (NEG) Urine Bilirubin Negative (NEG) Urine Urobilinogen Dipstick 1.0 mg/dL (0.2 mg/dL) Urine Leukocyte Esterase Small (NEG) Urine RBC 0 /HPF (0-2) Urine WBC 5-10 /HPF (0-4) Urine Squamous Epithelial Cells Occ /LPF Urine Bacteria Many /HPF (0-FEW) Urine Hyaline Casts Moderate /HPF Urine Mucus Mod /LPF Urine Test Negative (NEG) White Blood Count 6.8 x10^3/uL (4.0-11.0) Red Blood Count 4.35 x10^6/uL (3.50-5.40) Hemoglobin 13.3 g/dL (12.0-15.5) Hematocrit 38.9 % (36.0-47.0) Mean Corpuscular Volume 89 fL (79-100) Mean Corpuscular Hemoglobin 31 pg (25-35) Mean Corpuscular Hemoglobin Concent 34 g/dL (31-37) Red Cell Distribution Width 12.6 % (11.5-14.5) Platelet Count 198 x10^3/uL (140-400) Neutrophils (%) (Auto) 51 % (31-73) Lymphocytes (%) (Auto) 32 % (24-48) Monocytes (%) (Auto) 15 % (0-9) Eosinophils (%) (Auto) 1 % (0-3) Basophils (%) (Auto) 1 % (0-3) Neutrophils # (Auto) 3.5 x10^3uL (1.8-7.7) Lymphocytes # (Auto) 2.2 x10^3/uL (1.0-4.8) Monocytes # (Auto) 1.0 x10^3/uL (0.0-1.1) Eosinophils # (Auto) 0.0 x10^3/uL (0.0-0.7) Basophils # (Auto) 0.1 x10^3/uL (0.0-0.2) Sodium Level 130 mmol/L (136-145) 133 mmol/L (136-145) Potassium Level 2.2 mmol/L (3.5-5.1) 1.9 mmol/L (3.5-5.1) Chloride Level 80 mmol/L (98-107) 87 mmol/L (98-107) Carbon Dioxide Level mmol/L (21-32) 41 mmol/L (21-32) Anion Gap (6-14) 5 (6-14) Blood Urea Nitrogen 17 mg/dL (7-20) 17 mg/dL (7-20) Creatinine 1.2 mg/dL (0.6-1.0) 0.8 mg/dL (0.6-1.0) Estimated GFR (Cockcroft-Gault) 50.0 79.9 BUN/Creatinine Ratio 14 (6-20) 21 (6-20) Glucose Level 118 mg/dL (70-99) 86 mg/dL (70-99) Calcium Level 9.6 mg/dL (8.5-10.1) 8.5 mg/dL (8.5-10.1) Magnesium Level 2.3 mg/dL (1.8-2.4) 2.2 mg/dL (1.8-2.4) Total Bilirubin 1.2 mg/dL (0.2-1.0) 1.0 mg/dL (0.2-1.0) Aspartate Amino Transf (AST/SGOT) 97 U/L (15-37) 56 U/L (15-37) Alanine Aminotransferase (ALT/SGPT) 66 U/L (14-59) 45 U/L (14-59) Alkaline Phosphatase 79 U/L (46-116) 62 U/L (46-116) Troponin I Quantitative < 0.017 ng/mL (0.000-0.055) Total Protein 7.6 g/dL (6.4-8.2) 6.4 g/dL (6.4-8.2) Albumin 3.7 g/dL (3.4-5.0) 3.1 g/dL (3.4-5.0) Albumin/Globulin Ratio 0.9 (1.0-1.7) 0.9 (1.0-1.7) Urine Opiates Screen Neg (NEG) Urine Methadone Screen Neg (NEG) Urine Barbiturates Neg (NEG) Urine Phencyclidine Screen Neg (NEG) Urine Amphetamine/Methamphetamine Neg (NEG) Urine Benzodiazepines Screen Neg (NEG) Urine Cocaine Screen Neg (NEG) Urine Cannabinoids Screen Neg (NEG) Urine Ethyl Alcohol Neg (NEG) Test 06/15/18 14:20 06/15/18 20:00 06/16/18 03:07 Sodium Level 137 mmol/L (136-145) 141 mmol/L (136-145) Potassium Level 2.7 mmol/L (3.5-5.1) 3.2 mmol/L (3.5-5.1) 3.2 mmol/L (3.5-5.1) Chloride Level 93 mmol/L (98-107) 102 mmol/L (98-107) Carbon Dioxide Level 36 mmol/L (21-32) 32 mmol/L (21-32) Anion Gap 8 (6-14) 7 (6-14) Blood Urea Nitrogen 14 mg/dL (7-20) 17 mg/dL (7-20) Creatinine 0.9 mg/dL (0.6-1.0) 0.7 mg/dL (0.6-1.0) Estimated GFR (Cockcroft-Gault) 69.7 93.2 BUN/Creatinine Ratio 16 (6-20) 24 (6-20) Glucose Level 121 mg/dL (70-99) 93 mg/dL (70-99) Calcium Level 8.8 mg/dL (8.5-10.1) 8.5 mg/dL (8.5-10.1) Total Bilirubin 0.9 mg/dL (0.2-1.0) 0.4 mg/dL (0.2-1.0) Aspartate Amino Transf (AST/SGOT) 60 U/L (15-37) 39 U/L (15-37) Alanine Aminotransferase (ALT/SGPT) 52 U/L (14-59) 39 U/L (14-59) Alkaline Phosphatase 79 U/L (46-116) 64 U/L (46-116) Total Protein 7.1 g/dL (6.4-8.2) 6.1 g/dL (6.4-8.2) Albumin 3.5 g/dL (3.4-5.0) 2.7 g/dL (3.4-5.0) Albumin/Globulin Ratio 1.0 (1.0-1.7) 0.8 (1.0-1.7) Laboratory Tests Test 06/15/18 14:20 06/15/18 20:00 06/16/18 03:07 Sodium Level 137 mmol/L (136-145) 141 mmol/L (136-145) Potassium Level 2.7 mmol/L (3.5-5.1) 3.2 mmol/L (3.5-5.1) 3.2 mmol/L (3.5-5.1) Chloride Level 93 mmol/L (98-107) 102 mmol/L (98-107) Carbon Dioxide Level 36 mmol/L (21-32) 32 mmol/L (21-32) Anion Gap 8 (6-14) 7 (6-14) Blood Urea Nitrogen 14 mg/dL (7-20) 17 mg/dL (7-20) Creatinine 0.9 mg/dL (0.6-1.0) 0.7 mg/dL (0.6-1.0) Estimated GFR (Cockcroft-Gault) 69.7 93.2 BUN/Creatinine Ratio 16 (6-20) 24 (6-20) Glucose Level 121 mg/dL (70-99) 93 mg/dL (70-99) Calcium Level 8.8 mg/dL (8.5-10.1) 8.5 mg/dL (8.5-10.1) Total Bilirubin 0.9 mg/dL (0.2-1.0) 0.4 mg/dL (0.2-1.0) Aspartate Amino Transf (AST/SGOT) 60 U/L (15-37) 39 U/L (15-37) Alanine Aminotransferase (ALT/SGPT) 52 U/L (14-59) 39 U/L (14-59) Alkaline Phosphatase 79 U/L (46-116) 64 U/L (46-116) Total Protein 7.1 g/dL (6.4-8.2) 6.1 g/dL (6.4-8.2) Albumin 3.5 g/dL (3.4-5.0) 2.7 g/dL (3.4-5.0) Albumin/Globulin Ratio 1.0 (1.0-1.7) 0.8 (1.0-1.7) Allergies Allergies Coded Allergies Type Severity Reaction Last Updated Verified Penicillins Allergy Intermediate 12/27/17 Yes Disposition/Orders: D/C to Home RASHAUN STARK MD Jun 16, 2018 09:32
[2018-06-16 11:00] VITALS: BP 126/95
[2018-06-16 15:00] VITALS: BP 116/85
[2018-06-16 16:01] LABS: CALCIUM 8.8 mg/dL (8.5-10.1); CREATININE 0.7 mg/dL (0.6-1.0); GFR 93.2
--- NOTE | 2018-06-16 16:54 | NUR ---
Pt discharged home with self care, gave her information on high potassium diet so that she can increase potassium by eating foods. She was wheeled out by [facility] to the main entrance and picked up by her mom. Willi Clark RN
== END 2018-06-16 16:57 | disposition home or self-care (01) | DRG 312 ==
LOC: ER 15:33 → 6 SOUTH 17:17
PROVIDERS: ADMIT Family Medicine; ATTEND Family Medicine
DX: I95.1 Orthostatic hypotension (principal); E44.1 Mild protein-calorie malnutrition; E87.1 Hypo-osmolality and hyponatremia; E87.6 Hypokalemia; J45.909 Unspecified asthma, uncomplicated; R74.0 Nonspecific elevation of levels of transaminase and lactic acid dehydrogenase [LDH]; G43.909 Migraine, unspecified, not intractable, without status migrainosus; F41.9 Anxiety disorder, unspecified; Z88.0 Allergy status to penicillin; Z82.3 Family history of stroke; Z82.49 Family history of ischemic heart disease and other diseases of the circulatory system; Z82.5 Family history of asthma and other chronic lower respiratory diseases; Z83.3 Family history of diabetes mellitus; Z68.27 Body mass index [BMI] 27.0-27.9, adult
CPT/HCPCS: 36415; 71046; 80048; 80053; 80307; 81001; 81025; 83735; 84132; 84484; 85025; 87086; 93005; 94760; J3480; J7030; 99285-25